=== PATIENT | male | born 1990 | race Caucasian/White ===

== ENCOUNTER 2018-05-01 10:33 | Emergency (ER) | payer SELFPAY ==
[2018-05-01] MEDS ORDERED: LIDOCAINE 5% (700 MG) TRANSDERMAL ADH..PATCH TP ONE (11:03)
[2018-05-01] MEDS ORDERED: KETOROLAC TROMETHAMINE 60 MG/2 ML SDV IM ONE (11:03)
--- NOTE | 2018-05-01 12:03 | RADIOLOGY REPORT (SQ) ---
EXAM DESCRIPTION: CHEST 2 VIEWS COMPLETED DATE/TIME: 05/01/2018 11:35 am REASON FOR STUDY: chest wall pain COMPARISON: None. EXAM PARAMETERS: NUMBER OF VIEWS: two views TECHNIQUE: Digital Frontal and Lateral radiographic views of the chest acquired. RADIATION DOSE: NA LIMITATIONS: none FINDINGS: LUNGS AND PLEURA: No opacities, masses or pneumothorax. No pleural effusion. MEDIASTINUM AND HILAR STRUCTURES: No masses or contour abnormalities. HEART AND VASCULAR STRUCTURES: Heart normal size. No evidence for failure. BONES: No acute findings. HARDWARE: None in the chest. OTHER: No other significant finding. IMPRESSION: NO ACUTE RADIOGRAPHIC FINDING IN THE CHEST. TECHNICAL DOCUMENTATION: JOB ID: [id number] [employer]- All Rights Reserved Reading location - IP/workstation name: [email or web address]
[2018-05-01 12:14] VITALS: BP 102/57
--- NOTE | 2018-05-01 12:17 | ER Document Report ---
ED General - General Chief Complaint: Chest Wall Pain Stated Complaint: CHEST PAIN Time Seen by Provider: 05/01/18 11:03 TRAVEL OUTSIDE OF THE [place] IN LAST 30 DAYS: No - HPI Patient complains to provider of: Chest wall pain Notes: Patient with pain of the chest wall left sternal border and points to the coracoid process exacerbated with movement of his left arm. Patient denies any trauma denies any fevers chills nausea vomiting diarrhea. Patient resting healthy upon my evaluation. Denies any past medical history. Denies any recent travel. - Related Data Allergies/Adverse Reactions: No Known Allergies Allergy (Verified 05/01/18 10:34) Past Medical History - Social History Smoking Status: Current Every Day Smoker Frequency of alcohol use: None Drug Abuse: Marijuana Family History: Reviewed & Not Pertinent Patient has suicidal ideation: No Patient has homicidal ideation: No Renal/ Medical History: Denies: Hx Peritoneal Dialysis - Immunizations Immunizations up to date: No - UNSURE Hx Diphtheria, Pertussis, Tetanus Vaccination: Yes Review of Systems - Review of Systems Constitutional: No symptoms reported EENT: No symptoms reported Cardiovascular: No symptoms reported Respiratory: No symptoms reported Gastrointestinal: No symptoms reported Genitourinary: No symptoms reported Male Genitourinary: No symptoms reported Musculoskeletal: Other - Shoulder pain Skin: No symptoms reported Hematologic/Lymphatic: No symptoms reported Neurological/Psychological: No symptoms reported -: Yes All other systems reviewed and negative Physical Exam - Vital signs Vitals: Temp Pulse Resp BP Pulse Ox 98.0 F 77 20 122/79 100 05/01/18 10:37 05/01/18 10:37 05/01/18 10:37 05/01/18 10:37 05/01/18 10:37 Interpretation: Normal - General General appearance: Appears well, Alert - HEENT Head: Normocephalic, Atraumatic Eyes: Normal Pupils: PERRL - Respiratory Respiratory status: No respiratory distress Chest status: Tender - Pain is reproduced with palpation of the left sternal border PICC major muscle slight tenderness palpation of the coracoid process. Movement of the patient's left arm passively also because of the patient's pain , Other Breath sounds: Normal Chest palpation: Normal - Cardiovascular Rhythm: Regular Heart sounds: Normal auscultation Murmur: No - Abdominal Inspection: Normal Distension: No distension Bowel sounds: Normal Tenderness: Nontender Organomegaly: No organomegaly - Back Back: Normal, Nontender - Extremities General upper extremity: Normal inspection, Nontender, Normal color, Normal ROM , Normal temperature General lower extremity: Normal inspection, Nontender, Normal color, Normal ROM , Normal temperature, Normal weight bearing. No: Cong's sign - Neurological Neuro grossly intact: Yes Cognition: Normal Orientation: AAOx4 [place] Coma Scale Eye Opening: Spontaneous [place] Coma Scale Verbal: Oriented Arvind Coma Scale Motor: Obeys Commands [place] Coma Scale Total: 15 Speech: Normal Motor strength normal: LUE, RUE, LLE, RLE Sensory: Normal - Psychological Associated symptoms: Normal affect, Normal mood - Skin Skin Temperature: Warm Skin Moisture: Dry Skin Color: Normal Course - Re-evaluation Re-evalutation: 05/01/18 20:04 EKG chest x-ray showed no critical pathology for the patient's symptoms. Patient's vital signs remained stable. Will likely patient has chest wall pain. Patient will be discharged home follow-up primary care physician. 05/01/18 20:04 The patient has atypical chest pain as the patient's chest pain is not suggestive of pulmonary embolus, cardiac ischemia, aortic dissection, or other serious etiology. Given the extremely low risk of these diagnoses further testing and evaluation for these possibilities does not appear to be indicated at this time. The patient has been instructed to return if the symptoms worsen or change in any way. - Vital Signs Vital signs: Temp Pulse Resp BP Pulse Ox 98.0 F 77 20 122/79 100 05/01/18 10:37 05/01/18 10:37 05/01/18 10:37 05/01/18 10:37 05/01/18 10:37 Discharge - Discharge Clinical Impression: Chest wall pain Condition: Good Disposition: HOME, SELF-CARE Instructions: Chest Wall Pain ([facility]), Anti-Inflammatory Medication ([facility]) Additional Instructions: EKG and chest x-ray today reveal no critical pathology. you are experiencing chest wall pain caused by inflammation in the chest. Treatment involves anti- inflammatory medication also recommend taking Tylenol along with anti- inflammatory medication as prescribed. Return to ER symptoms worsen follow-up with your primary care physician. Prescriptions: Ibuprofen [Motrin 600 mg Tablet] 600 mg PO Q8HP PRN #21 tablet PRN Reason: Forms: Return to Work
--- NOTE | 2018-05-01 13:58 | EKG REPORT ---
SEVERITY:- ABNORMAL ECG - SINUS RHYTHM LEFT ANTERIOR FASCICULAR BLOCK ST ELEV, PROBABLE NORMAL EARLY REPOL PATTERN : Confirmed by: Roverto Gutierrez MD 01-May-2018 13:57:46
== END 2018-05-01 12:21 | disposition home or self-care (01) ==
LOC: ER 10:33
DX: R07.89 Other chest pain (principal); F17.200 Nicotine dependence, unspecified, uncomplicated
CPT/HCPCS: 93005; 99285; 96372; 71046; 93010; J1885